=== PATIENT | female | born 1945 | race Caucasian/White ===

== ENCOUNTER 2016-05-01 08:59 | Outpatient (CLI) | payer MEDICARE | END 2016-05-01 09:00 | disposition home or self-care (01) | DX: Z13.820 Encounter for screening for osteoporosis (principal); M85.89 Other specified disorders of bone density and structure, multiple sites; M41.9 Scoliosis, unspecified ==

== ENCOUNTER 2016-05-01 09:00 | Outpatient (CLI) | payer MEDICARE | END 2016-05-01 09:01 | disposition home or self-care (01) | DX: S26.01 Contusion of heart with hemopericardium (principal); I51.7 Cardiomegaly; Z13.820 Encounter for screening for osteoporosis; M85.89 Other specified disorders of bone density and structure, multiple sites; M41.9 Scoliosis, unspecified ==

== ENCOUNTER 2016-08-15 12:54 | Outpatient (CLI) | payer MEDICARE | END 2016-08-15 12:55 | disposition home or self-care (01) | DX: N60.02 Solitary cyst of left breast (principal) ==

== ENCOUNTER 2017-08-27 09:34 | Outpatient (CLI) | payer MEDICARE ==
--- NOTE | 2017-08-28 13:54 | Mammography Report ---
DIGITAL SCREENING MAMMOGRAM: 08/27/2017 CLINICAL INDICATION: A 72-year-old for screening. COMPARISON: 06/2016, 12/2013, 11/2012, 10/2010, 09/2009. TECHNIQUE: Routine CC and MLO projections were obtained of the breasts. FINDINGS: The breasts demonstrate scattered fibroglandular densities bilaterally. Coarse and punctate, typically benign calcifications are present. No suspicious masses, clustered microcalcifications, or regions of architectural distortion are identified. IMPRESSION: BENIGN FINDINGS. RECOMMENDATION: Routine annual screening unless otherwise clinically indicated. BI-RADS CATEGORY 2 - BENIGN FINDINGS. STANDARD QUALIFYING STATEMENTS: 1. This examination was reviewed with the aid of Computer-Aided Detection (CAD). 2. A negative or benign imaging report should not delay biopsy if clinically suspicious findings are present. Consider surgical consultation if warranted. More than 5% of cancers are not identified by imaging. 3. Dense breasts may obscure an underlying neoplasm. TD: 08/28/2017 13:53
== END 2017-08-27 09:35 | disposition home or self-care (01) ==
LOC: DI.S 09:34
PROVIDERS: ATTEND Nurse Practitioner Family
DX: Z12.31 Encounter for screening mammogram for malignant neoplasm of breast (principal)
CPT/HCPCS: 77067

== ENCOUNTER 2017-09-23 10:03 | Outpatient (CLI) | payer MEDICARE ==
[2017-09-23 18:57] LABS: ALBUMIN 3.8 g/dL (3.2-5.5); ALBUMIN/GLOBULIN RATIO 1.4 (1.0-2.2); ALKALINE PHOSPHATASE 69 IU/L (42-121); ALT ALANINE AMINOTRANSFERASE 16 IU/L (10-60); AST ASPARTATE AMINOTRANSFERASE 21 IU/L (10-42); BILIRUBIN,TOTAL 0.8 mg/dL (0.2-1.0); BUN - BLOOD UREA NITROGEN 24 mg/dL (6-20); CALCIUM 9.1 mg/dL (8.5-10.3); CARBON DIOXIDE - CO2 29 mmol/L (21-32); CHLORIDE 100 mmol/L (101-111); CHOLESTEROL 198 mg/dL; CREATININE 0.9 mg/dL (0.4-1.0); GFR - MDRD 62 (>89); GLUCOSE 101 mg/dL (70-100); HDL CHOLESTEROL 66 mg/dL; LDL CHOLESTEROL,CALCULATED 113 mg/dL; LDL/HDL RATIO 1.7 (<4.4); SODIUM 135 mmol/L (135-145); TOTAL PROTEIN 6.5 g/dL (6.7-8.2); VLDL CHOLESTEROL 19 mg/dL
[2017-09-23 19:51] LABS: HB2 TOTAL 16.1 g/dL; HEMOGLOBIN A1C 0.67 g/dL
== END 2017-09-23 10:04 | disposition home or self-care (01) ==
LOC: LAB.S 10:03
PROVIDERS: ATTEND Nurse Practitioner Family
DX: R73.01 Impaired fasting glucose (principal); E78.5 Hyperlipidemia, unspecified; I25.10 Atherosclerotic heart disease of native coronary artery without angina pectoris
CPT/HCPCS: 36415; 80053; 80061; 83036; 83721; 84443

== ENCOUNTER 2017-11-29 11:48 | Emergency (ER) | payer MEDICARE ==
[2017-11-29] MEDS ORDERED: BUFFERED LIDOCAINE 10 ML SYRINGE SUBQ STA (13:36)
[2017-11-29] MEDS ORDERED: TETANUS/DIPHTHERIA/PERTUSSIS 0.5 ML SYRINGE IM ONE (13:36)
[2017-11-29] MEDS ORDERED: BUFFERED LIDOCAINE 10 ML SYRINGE ONE (13:37)
--- NOTE | 2017-11-29 13:39 | ED Physician Documentation ---
PD HPI HEAD INJURY - Stated complaint Stated Complaint: GLF/LAC BACK OF HEAD - Chief complaint Chief Complaint: Laceration - History obtained from History obtained from: Patient - History of Present Illness Mechanism of head injury: Fell (She had a trip and fall hitting the back of her head on the ground. This is around 1030. She had a headache but it is now gone. There is no loss of consciousness. She has a wound on her occiput, tetanus is not up-to-date. No other injuries.) Review of Systems Constitutional: denies: Fever, Chills Eyes: denies: Loss of vision, Decreased vision, Photophobia Ears: denies: Loss of hearing, Ear pain GI: denies: Abdominal Pain, Nausea, Vomiting PD PAST MEDICAL HISTORY - Past Medical History Cardiovascular: Hypertension Respiratory: Other HEENT: None - Past Surgical History Cardiovascular: Lobectomy - Present Medications Home Medications: Ambulatory Orders Medication Instructions Recorded Confirmed Ascorbic Acid [Vitamin C] 1 tab PO DAILY 07/29/14 03/27/16 Aspirin [Aspir 81] 1 tab PO DAILY 07/29/14 03/27/16 Cholecalciferol (Vitamin D3) 1 tab ORAL DAILY 07/29/14 03/27/16 [Vitamin D-3] Lisinopril 1 tab PO DAILY 07/29/14 03/27/16 Multivitamin [Multi-Vitamin Daily] 1 tab PO DAILY 07/29/14 03/27/16 - Allergies Allergies/Adverse Reactions: Allergies Allergy/AdvReac Type Severity Reaction Status Date / Time No Known Drug Allergies Allergy Verified 11/29/17 12:06 - Social History Does the pt smoke?: No Smoking Status: Never smoker Does the pt drink ETOH?: Yes Does the pt have substance abuse?: No - Immunizations Immunizations are current?: Yes PD ED PE NORMAL - Vitals Vital signs reviewed: Yes - General General: Alert and oriented X 3, No acute distress - HEENT HEENT: Other (The left pupil is larger than the right and she has a disconjugate gaze which she says 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 She has a 2 cm curved right scalp laceration on the occiput.) - Neck Neck: Supple, no meningeal sign, No bony TTP - Extremities Extremities: No edema, No calf tenderness / cord - Neuro Neuro: Alert and oriented X 3, Normal speech Eye Opening: Spontaneous Motor: Obeys Commands Verbal: Oriented GCS Score: 15 - Psych Psych: Normal mood, Normal affect Results - Vitals Vitals: Vital Signs - 24 hr 11/29/17 11/29/17 12:03 14:30 Temperature 36.4 C L 36.6 C Heart Rate 62 61 Respiratory 18 13 Rate Blood Pressure 176/94 H 148/87 H O2 Saturation 95 97 Oxygen O2 Source Room air - Rads (name of study) CT Head Radiology: EMP read contemporaneously (Changes attributable to her prior subarachnoid hemorrhage/aneurysm.) Procedures - Laceration (location) scalp Length in cm: 2 Wound type: Curved, Into subcut fat Neurovascular status: Sensory intact, Motor intact Anesthesia: Lidocaine 1%, With bicarb Wound Preparation: Irrigated copiously NS Skin layer closure: [place] (5) Other: Tetanus booster given Complexity: Simple PD MEDICAL DECISION MAKING - Sepsis Event Vital Signs: Vital Signs - 24 hr 11/29/17 11/29/17 12:03 14:30 Temperature 36.4 C L 36.6 C Heart Rate 62 61 Respiratory 18 13 Rate Blood Pressure 176/94 H 148/87 H O2 Saturation 95 97 Oxygen O2 Source Room air Departure - Departure Disposition: 01 Home, Self Care Clinical Impression: Head injury Qualifiers: Encounter type: initial encounter Qualified Code(s): S09.90XA - Unspecified injury of head, initial encounter Occipital scalp laceration Qualifiers: Encounter type: initial encounter Qualified Code(s): S01.01XA - Laceration without foreign body of scalp, initial encounter Condition: Good Record reviewed to determine appropriate education?: Yes Instructions: ED Head Injury Closed Comments: Come back for any signs of infection which would include: Redness, swelling, drainage, increased pain, or fevers. Follow-up with your physician in 10 days for staple removal.
[2017-11-29 14:31] VITALS: BP 148/87
--- NOTE | 2017-11-29 14:55 | CT Report ---
Procedure Date: 11/29/2017 Accession Number: [id number] / [id number] Procedure: CT - Head W/O CPT Code: FULL RESULT: EXAM: CT HEAD EXAM DATE: 11/29/2017 02:22 PM. CLINICAL HISTORY: Head trauma with occipital laceration. COMPARISON: None. TECHNIQUE: Multiaxial CT images were obtained from the foramen magnum to the vertex. Reformats: Sagittal and coronal. IV contrast: None. In accordance with CT protocol optimization, one or more of the following dose reduction techniques were utilized for this exam: automated exposure control, adjustment of mA and/or KV based on patient size, or use of iterative reconstructive technique. FINDINGS: Parenchyma: No intraparenchymal hemorrhage. No evidence of mass, midline shift, or CT findings of acute infarction. Jack-white differentiation is distinct. Diffuse chronic microangiopathic white matter changes are evident. Stable areas of encephalomalacia in the right parieto-occipital and frontal lobes. Left temporal lobe encephalomalacia is also present. 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 Extraaxial Spaces: Normal for age. No subdural or epidural collections identified. Ventricles: The ventricles and cortical sulci are enlarged, consistent with age-related tissue loss. Right parietal approach ventriculostomy catheter terminates in the right frontal horn region. Sinuses and orbits: Imaged paranasal sinuses, orbits, and mastoids show no significant abnormality. Bones: Left sided craniotomy, unchanged. No fracture. Stable appearance of the left. Other: Mild soft tissue swelling and ciaran are noted in the right parietal region. IMPRESSION: 1. Generalized age-related cortical atrophic changes without evidence of acute intracranial abnormality. 2. Multiple areas of encephalomalacia including the left temporal, right parieto-occipital and right frontal lobe. RADIA
== END 2017-11-29 15:00 | disposition home or self-care (01) ==
LOC: ED 11:48
DX: S01.01XA Laceration without foreign body of scalp, initial encounter (principal); S09.90XA Unspecified injury of head, initial encounter; Z23 Encounter for immunization; I10 Essential (primary) hypertension; Z79.82 Long term (current) use of aspirin; W01.198A Fall on same level from slipping, tripping and stumbling with subsequent striking against other object, initial encounter
CPT/HCPCS: 12001; 70450; 90471; 99283

== ENCOUNTER 2018-11-04 08:42 | Outpatient (CLI) | payer MEDICARE ==
--- NOTE | 2018-11-05 08:33 | Mammography Report ---
Reason: ANNUAL SCREENING Procedure Date: 11/04/2018 Accession Number: [id number] / [id number] Procedure: [facility] - Screening Mammo Dig Bilat CPT Code: FULL RESULT: EXAM: Screening Mammo Dig Bilat DATE: 11/04/2018 9:23 AM CLINICAL HISTORY: Screening encounter. No reported risk factors. TECHNIQUE: (B) - Bilateral CC, laterally exaggerated CC, MLO views were obtained. COMPARISON: 08/27/2017 through 12/30/2013. PARENCHYMAL PATTERN: (A) - The breast(s) demonstrate(s) scattered fibroglandular densities. FINDINGS: A radiodense tubular object is seen projecting over the posterior lower right breast/chest wall on the right MLO view, potentially a central venous catheter, also seen in 2017 and unchanged, typically benign. There are no suspicious masses, calcifications, or areas of distortion. IMPRESSION: Benign findings. BI-RADS category 2. RECOMMENDATION: (ANNUAL) - Recommend routine annual screening mammography. BI-RADS CATEGORY: (2) - Benign Findings. STANDARD QUALIFYING STATEMENTS: 1. This examination was not reviewed with the aid of Computer-Aided Detection (CAD). 2. A negative or benign imaging report should not preclude biopsy if clinically suspicious findings are present. 3. Dense breasts may obscure an underlying neoplasm. 4. This examination was reviewed without the aid of 3D breast imaging (tomosynthesis).
== END 2018-11-04 08:43 | disposition home or self-care (01) ==
LOC: DI 08:42
PROVIDERS: ATTEND Registered Nurse
DX: N60.12 Diffuse cystic mastopathy of left breast (principal); R92.8 Other abnormal and inconclusive findings on diagnostic imaging of breast
CPT/HCPCS: 77067

== ENCOUNTER 2019-10-15 17:22 | Outpatient (CLI) | payer MEDICARE | END 2019-10-15 17:23 | disposition critical access hospital (66) | LOC: EMS 17:22 | PROVIDERS: ATTEND Surgery | DX: R53.1 Weakness (principal); R47.81 Slurred speech | CPT/HCPCS: A0425; A0429 ==

== ENCOUNTER 2019-10-15 17:55 | Observation (INO) | payer MEDICARE ==
[2019-10-15] MEDS ORDERED: SODIUM CHLORIDE 0.9% 1,000 ML IV STA (18:10)
[2019-10-15 18:36] LABS: BASOPHILS # (AUTO) 0.1 10^3/uL (0.0-0.1); BASOPHILS % (AUTO) 1.1 %; EOSINOPHILS # (AUTO) 0.1 10^3/uL (0.0-0.7); EOSINOPHILS % (AUTO) 2.1 %; HGB - HEMOGLOBIN 15.7 g/dL (12.0-16.0); LYMPHOCYTES # (AUTO) 1.6 10^3/uL (1.5-3.5); LYMPHOCYTES % (AUTO) 27.9 %; MEAN CORPUSCULAR HEMOGLOBIN 30.8 pg (27.0-31.0); MEAN CORPUSCULAR HGB CONC 32.9 g/dL (32.0-36.0); MEAN CORPUSCULAR VOLUME 93.5 fL (81.0-99.0); MEAN PLATELET VOLUME 10.4 fL (7.9-10.8); MONOCYTES # (AUTO) 0.6 10^3/uL (0.0-1.0); MONOCYTES % (AUTO) 10.4 %; NEUTROPHILS # (AUTO) 3.3 10^3/uL (1.5-6.6); NEUTROPHILS % (AUTO) 58.3 %; PLT - PLATELET COUNT 227 10^3/uL (130-450); RED CELL DISTRIBUTION WIDTH 11.9 % (12.0-15.0); WHITE BLOOD COUNT 5.6 x10^3/uL (4.8-10.8)
[2019-10-15 18:46] LABS: PT - PROTHROMBIN TIME 11.2 secs (9.9-12.6)
[2019-10-15 18:49] LABS: ALBUMIN 3.8 g/dL (3.2-5.5); ALBUMIN/GLOBULIN RATIO 1.4 (1.0-2.2); BILIRUBIN,TOTAL 0.7 mg/dL (0.2-1.0); CALCIUM 9.1 mg/dL (8.5-10.3); CREATININE 0.9 mg/dL (0.4-1.0); TOTAL PROTEIN 6.5 g/dL (6.7-8.2)
[2019-10-15] MEDS ORDERED: ASPIRIN CHEW 81 MG TABLET PO STA ×2 (18:54→22:09)
--- NOTE | 2019-10-15 19:09 | CT Report ---
PROCEDURE: HEAD WO INDICATIONS: stroke TECHNIQUE: Noncontrast 4.5 mm thick angled axial sections acquired from the foramen magnum to the vertex. For r adiation dose reduction, the following was used: automated exposure control, adjustment of mA and/or kV according to patient size. COMPARISON: 11/29/[address] FINDINGS: Image quality: Excellent. CSF spaces: Basal cisterns are patent. No extra-axial fluid collections. Ventricles are stable in size and shape with a ventriculostomy catheter from right posterior parietal approach. Brain: No midline shift. No intracranial masses or hemorrhage. [place]-white matter interface is norm al. Skull and face: Calvarium and visualized facial bones are intact, without suspicious lesions. Sinuses: Visualized sinuses and mastoids are clear. IMPRESSION: Stable over time, ventriculostomy catheter in normal position from right-sided approach. No change from November 2017. Reviewed by: Darin Dyer MD on 10/15/2019 7:08 PM PDT Approved by: Darin Dyer MD on 10/15/2019 7:08 PM PDT Station ID: [id number]
[2019-10-15] MEDS ORDERED: IOVERSOL 320 100 ML VIAL IVP ONE ×2 (19:13→21:01)
[2019-10-15 19:22] LABS: BILIRUBIN,URINE NEGATIVE (NEGATIVE); GLUCOSE, URINE (UA) NEGATIVE (NEGATIVE); KETONES,URINE (UA) NEGATIVE (NEGATIVE); LEUKOCYTE ESTERASE, URINE SMALL (NEGATIVE); NITRITE,URINE POSITIVE (NEGATIVE); OCCULT BLOOD,URINE SMALL (NEGATIVE); PH,URINE 6.5 PH (5.0-7.5); PROTEIN,URINE NEGATIVE (NEGATIVE); UROBILINOGEN,URINE 0.2 (NORMAL) E.U./dL (NORMAL)
[2019-10-15 19:24] LABS: CLARITY,URINE HAZY (CLEAR)
[2019-10-15 19:35] LABS: BACTERIA,URINE Many /HPF (None Seen); SQUAMOUS EPITHELIAL CELL,UR MANY Squamous (<= Few)
--- NOTE | 2019-10-15 19:50 | ED Physician Documentation ---
History of Present Illness - Stated complaint Stated Complaint: POSS STROKE - Chief complaint Chief Complaint: Neuro - History obtained from History obtained from: Patient, EMS - Additonal information Additional information: Patient comes emergency department via EMS after experiencing strokelike symptoms starting 2 days ago. Patient states she woke up from a nap and noticed that her right arm and leg seemed weak. She states she also was having trouble getting the right words out and enunciating her words. Patient states she feels like the symptoms have gotten worse over the last 2 days. She has a history of a ruptured aneurysm some years back and has a ventricular shunt in place for this. This was on the right side and left her with some mild left-sided deficits. However, patient states that she has not noticed any worsening of the weakness on the left. Patient denies any illness recently. No fevers or chills. No cough. No shortness of breath that is worse than usual. Patient states she has a history of COPD. No chest pain. No nausea or vomiting. No dizziness. Patient states that she has been able to drink water. She does walk around at home without a walker, and believes she has been able to get around since the symptoms started. No other complaints at this time. Review of Systems Ten Systems: 10 systems reviewed and negative Constitutional: reports: Reviewed and negative Eyes: reports: Reviewed and negative Ears: reports: Reviewed and negative Nose: reports: Reviewed and negative Throat: reports: Reviewed and negative Cardiac: reports: Reviewed and negative Respiratory: reports: Reviewed and negative GI: reports: Reviewed and negative : reports: Reviewed and negative Skin: reports: Reviewed and negative Musculoskeletal: reports: Reviewed and negative Neurologic: reports: Focal weakness Psychiatric: reports: Reviewed and negative Endocrine: reports: Reviewed and negative Immunocompromised: reports: Reviewed and negative PD PAST MEDICAL HISTORY - Past Medical History Cardiovascular: Hypertension Respiratory: Other HEENT: None - Past Surgical History Cardiovascular: Lobectomy - Present Medications Home Medications: Ambulatory Orders Medication Instructions Recorded Confirmed Ascorbic Acid [Vitamin C] 1 tab PO DAILY 07/29/14 03/27/16 Aspirin [Aspir 81] 1 tab PO DAILY 07/29/14 03/27/16 Cholecalciferol (Vitamin D3) 1 tab ORAL DAILY 07/29/14 03/27/16 [Vitamin D-3] Lisinopril 1 tab PO DAILY 07/29/14 03/27/16 Multivitamin [Multi-Vitamin Daily] 1 tab PO DAILY 07/29/14 03/27/16 - Allergies Allergies/Adverse Reactions: Allergies Allergy/AdvReac Type Severity Reaction Status Date / Time No Known Drug Allergies Allergy Verified 10/15/19 18:03 - Social History Does the pt smoke?: No Smoking Status: Never smoker Does the pt drink ETOH?: Yes Does the pt have substance abuse?: No - Immunizations Immunizations are current?: Yes PD ED PE NORMAL - Vitals Vital signs reviewed: Yes - General General: Alert and oriented X 3, No acute distress, Well developed/nourished - HEENT HEENT: Atraumatic, PERRL, EOMI, Moist mucous membranes - Neck Neck: Supple, no meningeal sign - Cardiac Cardiac: RRR, No murmur, Strong equal pulses - Respiratory Respiratory: No respiratory distress, Clear bilaterally - Abdomen Abdomen: Soft, Non tender, Non distended - Derm Derm: Normal color, Warm and dry, No rash - Extremities Extremities: No deformity - Neuro Neuro: Alert and oriented X 3, luggage liner 2-12 intact, No sensory deficit, Other (Patient has slowed speech, but she speaks proper words and words are clear. Mildly decreased strength of right upper and lower extremity compared to the left.) - Psych Psych: Normal mood, Normal affect PD ED PE EXPANDED - Neuro Neuro: Other (NIH stroke scale score 1.) Results - Vitals Vitals: Vital Signs - 24 hr 10/15/19 10/15/19 10/15/19 18:03 18:39 19:09 Temperature 37 C Heart Rate 64 76 70 Respiratory 17 20 22 Rate Blood Pressure 163/74 H 172/75 H 190/104 H O2 Saturation 92 94 92 Oxygen O2 Source Room air - EKG (time done) 1833 Rate: Rate (enter#) (68) Rhythm: NSR, LAE [place]: Normal Intervals: Normal MA QRS: LVH Ischemia: Normal ST segments. No: T wave inversion Compare to prior EKG: Old EKG unavailable Computer interpretation: Agree with computer - Labs Labs: Laboratory Tests 10/15/19 10/15/19 10/15/19 18:29 18:29 18:29 WBC 5.6 RBC 5.10 Hgb 15.7 Hct 47.7 H MCV 93.5 MCH 30.8 MCHC 32.9 RDW 11.9 L Plt Count 227 MPV 10.4 Neut # (Auto) 3.3 Lymph # (Auto) 1.6 [place] # (Auto) 0.6 Eos # (Auto) 0.1 Baso # (Auto) 0.1 Absolute Nucleated RBC 0.00 Nucleated RBC % 0.0 PT 11.2 INR 1.0 Sodium 139 Potassium 4.2 Chloride 101 Carbon Dioxide 26 Anion Gap 12.0 BUN 30 H Creatinine 0.9 Estimated GFR (MDRD) 62 L Glucose 110 H Calcium 9.1 Total Bilirubin 0.7 AST 20 ALT 18 Alkaline Phosphatase 62 Total Protein 6.5 L Albumin 3.8 Globulin 2.7 Albumin/Globulin Ratio 1.4 Lipase 46 Urine Color Urine Clarity Urine pH Ur Specific [place] Urine Protein Urine Glucose (UA) Urine Ketones Urine Occult Blood Urine Nitrite Urine Bilirubin Urine Urobilinogen Ur Leukocyte Esterase Urine RBC Urine WBC Ur Squamous Epith Cells Urine Bacteria Ur Microscopic Review Urine Culture Comments 10/15/19 19:15 WBC RBC Hgb Hct MCV MCH MCHC RDW Plt Count MPV Neut # (Auto) Lymph # (Auto) [place] # (Auto) Eos # (Auto) Baso # (Auto) Absolute Nucleated RBC Nucleated RBC % PT INR Sodium Potassium Chloride Carbon Dioxide Anion Gap BUN Creatinine Estimated GFR (MDRD) Glucose Calcium Total Bilirubin AST ALT Alkaline Phosphatase Total Protein Albumin Globulin Albumin/Globulin Ratio Lipase Urine Color YELLOW Urine Clarity HAZY Urine pH 6.5 Ur Specific [place] 1.020 Urine Protein NEGATIVE Urine Glucose (UA) NEGATIVE Urine Ketones NEGATIVE Urine Occult Blood SMALL H Urine Nitrite POSITIVE H Urine Bilirubin NEGATIVE Urine Urobilinogen 0.2 (NORMAL) Ur Leukocyte Esterase SMALL H Urine RBC 6-10 H Urine WBC 11-25 H Ur Squamous Epith Cells MANY Squamous H Urine Bacteria Many H Ur Microscopic Review INDICATED Urine Culture Comments NOT INDICATED - Rads (name of study) CT head Radiology: Final report received, EMP read indepedently, See rad report (Final radiologist interpretation: Stable over time, ventriculostomy catheter in normal position from right-sided approach. No change from November 2017.) PD MEDICAL DECISION MAKING - ED course Complexity details: reviewed results, re-evaluated patient, considered differential, d/w patient ED course: Actually did quite well in the emergency department, and her initial CT scan of the head without contrast showed no acute findings. Her labs were unremarkable. Urinalysis is pending at this time as was CTA of the head and neck. Patient was signed out to Dr. Jean Baptiste pending this and reevaluation and final dispositi on.
[2019-10-15] MEDS ORDERED: METOPROLOL 5 MG/5 ML VIAL IVP STA (20:32)
--- NOTE | 2019-10-15 20:57 | CT Report ---
PROCEDURE: ANGIO HEAD W/WO INDICATIONS: L sided facial droop CONTRAST: IV CONTRAST: Optiray 320 ml: 100 PO CONTRAST: *NO PO CONTRAST TECHNIQUE: Precontrast 4.5 mm thick angled axial sections acquired from the foramen magnum to the vertex. Afte r the administration of intravenous contrast, 1 mm thick sections acquired through the [place] of [place] is. Postcontrast 4.5 mm thick sections then re-acquired from the foramen magnum to the vertex. 3-di mensional cfifzug-tcuurjmjd-pugirrxgas (MIP) and/or volume rendering reformats were acquired of the c entral intracranial vasculature. For radiation dose reduction, the following was used: automated ex posure control, adjustment of mA and/or kV according to patient size. COMPARISON: Prior head CT 11/30/2019 and earlier same day. FINDINGS: Image quality: Excellent. Anterior circulation: Intracranial internal carotid arteries are normal in size and flow. The flow within the paired anterior cerebral arteries is normal and symmetric. The flow within the middle cer ebral arteries is normal and symmetric but quality of visualization is quite limited by metal artifac t from what appears to be 2 adjacent left-sided [place] region aneurysm clips. The anterior communicating artery is seen. No aneurysms are seen. Posterior circulation: Visualized portions of the vertebral arteries demonstrate normal caliber, and join to form a normal appearing basilar artery. Flow within the posterior cerebral arteries is poor ly seen due to metal artifact from adjacent aneurysm clip centered just to the left of midline and sy mmetric. No remaining aneurysms are seen. CSF spaces: Ventricles are normal in size and shape considering presence of a ventriculostomy cathet er on the right from right posterior approach. Basal cisterns are patent. No extra-axial fluid jacqueline ections. Brain: No midline shift. No intracranial bleeds or masses. Jack-white matter interface appears int act. Skull and face: Calvarium and facial bones appear intact, without acute suspicious lesions. Prior l eft frontotemporal craniotomy. Sinuses: Visualized sinuses and mastoids are clear. IMPRESSION: Prior aneurysm clipping at the posterior left margin of the [place] in this patient, produci ng metal artifact that obscures clear visualization of portions of the skull base arterial vasculatur e. Within this constraint the intracranial arterial vessel seen show no acute disease. Ventriculostomy catheter in normal position from right posterior approach, with tip extending to the anterior right lateral ventricle. No hydrocephalus is present. Prior craniotomy on the left. Reviewed by: Darin Dyer MD on 10/15/2019 8:55 PM PDT Approved by: Darin Dyer MD on 10/15/2019 8:55 PM PDT Station ID: [id number]
--- NOTE | 2019-10-15 20:59 | CT Report ---
PROCEDURE: ANGIO NECK W INDICATIONS: L sided facial droop, L neck pain CONTRAST: IV CONTRAST: Optiray 320 ml: 100 PO CONTRAST: *NO PO CONTRAST TECHNIQUE: After the administration of intravenous contrast, 1.5 mm axial sections acquired from the aortic arch to the [place]. Coronal 3-D maximum intensity projection (MIP) and/or volume rendering ref ormats were then performed. For radiation dose reduction, the following was used: automated exposur e control, adjustment of mA and/or kV according to patient size. COMPARISON: None. FINDINGS: Image quality: Excellent. Carotid system: The great vessels demonstrate a conventional anatomy as they arise from the aortic a rc. The origins of the common carotid arteries appear patent. The common carotid arteries demonstr ate normal calibers and courses. The bifurcation regions appear normal bilaterally. The internal ca rotid arteries demonstrate normal caliber and course. Posterior circulation: The origins of the vertebral arteries appear patent. The more superior porti ons of the vertebral arteries demonstrate normal course and caliber. They join to form a normal appe aring basilar artery. Soft tissues: Visualized neck soft tissues demonstrate no suspicious abnormalities. The thyroid gla nd is normal in size. Bones: No suspicious bony lesions. Visualized cervical spine appears normally aligned. IMPRESSION: No aortic arch or brachiocephalic arterial stenosis or occlusion is found. No sign of significant talia nosis at the proximal internal carotid arteries bilaterally. The estimate of stenosis included in the report of the imaging study was calculated using the NASCET method Reviewed by: Darin Dyer MD on 10/15/2019 8:58 PM PDT Approved by: Darin Dyer MD on 10/15/2019 8:58 PM PDT Station ID: [id number]
[2019-10-15] MEDS ORDERED: SODIUM CHLORIDE FLUSH 0.9% 10 ML SYRINGE IVP PRN (22:00)
[2019-10-15] MEDS ORDERED: ACETAMINOPHEN 325 MG TABLET PO PRN (22:00)
[2019-10-15] MEDS ORDERED: ONDANSETRON 4 MG/2 ML VIAL IVP PRN (22:00)
[2019-10-15] MEDS ORDERED: ATORVASTATIN 40 MG TABLET PO STA (22:09)
--- NOTE | 2019-10-15 22:11 | ED Physician Documentation ---
ED Addendum - Addendum Addendum: 10/15/19 22:06 Received sign-out from Dr. Chávez pending CTA results. CTA head/neck do not reveal significant or acute pathology. Patient says she still has some right- sided weakness (RUE > RLE). I also note that her blood pressures are quite high (200-210s/100s-110s); given 5mg IV lopressor with transient improvement. She can be redosed and/or given PO meds but concern is whether her blood pressure will continue to be adequately controlled/monitored if sent home tonight. Also, she has COPD but pulse ox has been as low as 84% before oxygen was placed; with 3 L NC, it corrects to 92-93% and she does not have respiratory symptoms. However, ongoing hypoxia and uncontrolled hypertension would have obvious potential to worsen TIA/CVA symptoms. Patient would benefit from observation status, Dr. Garcia accepts.
--- NOTE | 2019-10-15 22:52 | HISTORY & PHYSICAL EXAMINATION ---
Chief Complaint - Chief Complaint Chief Complaint: Right arm weakness History of Present Illness - Admitted From Admitted From:: Home - History Obtained From Records Reviewed: Yes History obtained from: Patient, ER Physician, EMR Exam Limitations: Patient is somewhat of a poor historian. - History of Present Illness HPI Comment/Other: This is a 74-year-old female with a past medical history significant for hypertension, COPD, history of brain aneurysm status post clipping and ventriculostomy placement who presents today complaining of right upper extremity weakness. She states her symptoms first began about 2 days ago after she had woken up from a nap. She did not think much of it at that time and felt that it would resolve on its own. She thinks her weakness resolved yesterday but that it returned today although she is not sure exactly what time this happened. She reports no numbness in that upper extremity. She denies any weakness in her lower extremities or left upper extremity. She believes that her right upper extremity weakness has resolved at this time. Reports no headache, blurry vision, dizziness, lightheadedness. She does not believe she has any slurred speech or difficulty speaking. She does complain of fatigue but states this is not new for her. She reports taking a baby aspirin a day. Reports no prior history of TIA or stroke. She does complain of abdominal pain and reports her last bowel movement was 3 days ago. Denies any dysuria, urgency, hematuria. She also denies any chest pain or dyspnea. In the emergency department, she underwent a CT of the head which showed no c oncerns for acute intracranial hemorrhage. She had a stable ventriculostomy catheter. She underwent a CTA of the head and neck which showed no concern for stenosis. She does have 2 aneurysm clips in the left side of the grindstone of Magu[place]. Her labs were unremarkable. Her blood pressure was elevated at times her systolic as high as 210. He was given Lopressor 5 mg IV with improvement in her blood pressure down to the 170s. She also desaturated at 1 point to the mid 80s and was placed on 2 L of oxygen. Given these findings above, medicine was consulted for admission. I did discuss goals of care the patient and she would like to be a full code. History - Past Medical History Cardiovascular: reports: Hypertension. denies: Congestive heart failure, Coronary artery disease, ID Respiratory: reports: COPD Neuro: reports: Other (Aneurysm.). denies: CVA, TIA HEENT: reports: Glaucoma MRSA Hx?: No - Past Surgical History Cardiovascular: reports: Lobectomy Neuro: reports: Craniotomy, Other (Ventriculogostomy. Aneurysm clipping of the grindstone of maguire.) - Family & Social History Family History Comment/Other: She reports her father from a myocardial infarction. Reports no other family history to her knowledge. Living arrangement: At home Living Situation: With spouse/s.o. Social History Notes: She lives at home with her . She normally embolus without any assistance. She smoked a pack a day for 30 years but quit in 1994. She drinks one beer on a daily basis. Meds/Allgy - Home Medications Home Medications: Ambulatory Orders Medication Instructions Recorded Confirmed Ascorbic Acid [Vitamin C] 1 tab PO DAILY 07/29/14 03/27/16 Aspirin [Aspir 81] 1 tab PO DAILY 07/29/14 03/27/16 Cholecalciferol (Vitamin D3) 1 tab ORAL DAILY 07/29/14 03/27/16 [Vitamin D-3] Lisinopril 1 tab PO DAILY 07/29/14 03/27/16 Multivitamin [Multi-Vitamin Daily] 1 tab PO DAILY 07/29/14 03/27/16 - Allergies Allergies/Adverse Reactions: Allergies Allergy/AdvReac Type Severity Reaction Status Date / Time No Known Drug Allergies Allergy Verified 10/15/19 18:03 Review of Systems - Constitutional Constitutional: reports: Fatigue, Weakness. denies: Fever, Chills - Eyes Eyes: denies: Blurred vision, Vision loss - Ears, Nose & Throat Ears, Nose & Throat: denies: Nasal discharge, Nasal congestion, Sore throat - Cardiovascular Cariovascular: denies: Chest pain, Edema, Lightheadedness, Exertional dyspnea, Decr. exercise tolerance - Respiratory Respiratory: denies: Cough, SOB at rest, SOB with exertion - Gastrointestinal Gastrointestinal: reports: Abdominal pain, Constipation. denies: Diarrhea, Nausea, Vomiting - Genitourinary Genitourinary: denies: Dysuria, Frequency, Urgency - Musculoskeletal Musculoskeletal: reports: Muscle weakness. denies: Muscle pain, Muscle aches - Integumentary Integumentary: denies: Rash - Neurological Neurological: reports: Focal weakness. denies: Headache, Dizziness, Numbness, Abnormal gait - All Other Systems All Other Systems: reports: Reviewed and negative Prior Level of Functionality: She is independent with her ADL's and does not ambulate with the assistance of any device. Exam - Vital Signs Reviewed Vital Signs: Yes Vital Signs: Vital Signs x48h Temp Pulse Resp BP Pulse Ox 10/15/19 22:00 60 16 179/99 H 92 10/15/19 21:24 62 16 181/96 H 92 10/15/19 21:00 70 21 175/100 H 94 10/15/19 20:50 66 22 179/101 H 92 10/15/19 20:46 73 17 181/125 H 93 10/15/19 20:30 74 29 H 213/115 H 93 10/15/19 20:00 90 24 168/96 H 88 L 10/15/19 19:09 70 22 190/104 H 92 10/15/19 18:39 76 20 172/75 H 94 10/15/19 18:03 37 C 64 17 163/74 H 92 - Physical Exam General Appearance: positive: No acute distress, Alert Eyes Bilateral: positive: Normal inspection, Conjunctivae nml, Other (Left pupil is 3mm and minimally reactive to light. Right pupil is 2mm and reactive to light. She reports her left pupil is always larger than her right.) ENT: positive: ENT inspection nml, Other (Nasal cannula in place.) Respiratory: positive: No respiratory distress, Other (Tachypnic but not in distress. Diminished breath sounds bilaterally.). negative: Wheezes, Rales Cardiovascular: positive: Regular rate & rhythm, No murmur. negative: Irregularly irregular, Tachycardia, Bradycardia, Systolic murmur, Diastolic murmur Peripheral Pulses: positive: 2+ Abdomen: positive: Nml bowel sounds, Tenderness (Most prominent in left lower and right quadrants.). negative: Non-tender, No distention (Distended adbo men.), Rebound Skin: positive: No rash, Dry, Cyanosis (Her bilateral lower extremities appear cyanotic at the toes which she reports has been present for over one year.), Other (Lower extremities appear mottled.) Extremities: positive: Pedal edema (Trace edema in bilateral lower extremities.). negative: Calf tenderness, Ray's sign/cords Neurologic/Psychiatric: positive: Oriented x3, CN's nml (2-12) (Cranial nerves grossly intact.), Sensation nml, Other (She has about 4 out of 5 motor strength in her bilateral lower extremities. She also has about 4 out of 5 motor strength in her right upper and left extremities. Sensation is intact in all 4 extremities. [id number] test is slightly slowed in the right upper extremity.). negative: Disoriented to person, Disoriented to place, Disoriented to time, Slurred/abnml speech Conclusion/Plan - Problem List (1) Stroke-like symptoms Conclusion/Plan: She presents with right upper extremity weakness that began 2 days ago and has been intermittent. She currently reports feeling back to baseline. This may potentially be a TIA or stroke as she still does appear to have some right upper extremity weakness on exam. If this was a stroke from 2 days ago, I would expect an infarct [address] of the head today. Reviewing her old CT scans revealed multiple areas of encephalomalacia including the left temporal lobe. This may potentially be a cause of her weakness. She received aspirin 81 mg in the emergency department. At this time, we will give her another 234 mg of aspirin so she will have a total of 325 mg. We will give her Lipitor 40 mg this evening. Unfortunately, she cannot undergo MRI due to the aneurysmal clipping she had in the past. We will consider repeating a CT of the head tomorrow. Will allow for permissive hypertension. We will monitor her on te lemetry and check an echocardiogram. Check lipid panel and A1c. PT/OT. (2) Abdominal pain Conclusion/Plan: Although she did not come to the emergency department today for abdominal pain she did complain of some pain on review of systems. She is quite tender on exam and her abdomen appears distended. Although she has been constipated with last only being 3 days ago, her bowel sounds are normal. We will obtain a stat CT of the abdomen pelvis without contrast given she has just received IV contrast for the CTA of the head and neck. Her pain appears controlled at this time so we will hold off on opiates. We will plan on starting her on a diet for the morning unless her CT reveals any acute abnormalities. Qualifiers: Abdominal location: lower abdomen, unspecified Qualified Code(s): R10.30 - Lower abdominal pain, unspecified (3) Hypoxia Conclusion/Plan: The etiology of this is not clear at this time. She reportedly desaturated to 80s on room air while the emergency department. She is currently saturating 95% on 2 L of oxygen. We will wean her oxygen to maintain an oxygen saturation greater than 88% given her history of COPD. She does not appear to be in exacerbation at this time so we will hold off on steroids. Chest x-ray has not been obtained yet but given we are obtaining a CT of the abdomen pelvis for her abdominal pain, we will obtain a CT of the chest as well to evaluate her aorta given her mottled extremities and right upper extremity weakness although her pulses are equal in both extremities. Unfortunately we cannot use IV contrast as she has just received contrast for the CT angiogram of the head and neck so we will not be able to fully evaluate for dissection but the CT of the neck did reveal no aortic arch stenosis. (4) Livedo reticularis Conclusion/Plan: Her lower extremities appear mild although she reports that the bluish tone of her bilateral toes have been present for over 1 year. Pulses are diminished but palpable. We will obtain arterial Dopplers of her lower extremities for further evaluation. (5) COPD (chronic obstructive pulmonary disease) Conclusion/Plan: This does not appear to be an exacerbation. Prior imaging revealed moderate emphysema on CT of the chest. She will need appropriate inhaler therapy on dis charge as well as an exercise desaturation test as she may need oxygen at home given her emphysema and possible fibrosis. (6) Hypertension Conclusion/Plan: She presents with systolics as high as the 210s. She is on lisinopril at home. Given the concern for possible stroke, we will allow for permissive hypertension overnight. We will give her IV antihypertensives for systolic greater than 215. We will resume her home antihypertensives tomorrow. She will likely need a second medication in addition to her lisinopril. Qualifiers: Hypertension type: essential hypertension Qualified Code(s): I10 - Essential (primary) hypertension (7) History of cerebral aneurysm Conclusion/Plan: This was performed at [facility] a few years ago after she had a brain he morrhage. She is a stable ventriculostomy catheter in place as well. Imaging today does not reveal any acute abnormalities. - Lab Results Lab results reviewed: Yes Fish Bones: 10/16/19 04:30 10/16/19 04:30 - Diagnostic Imaging Results Diagnostic Imaging Results: positive: Final report reviewed - EKG Results EKG Interpreted Independently: Yes EKG Comparison: Unchanged from prior EKG EKG Findings: Sinus rhythm with LVH. No ST segment changes. Core Measures - Anticipated LOS I expect patient to be DC'd or transferred within 96 hours.: Yes - Issues Hospital Issues and Management Plan: 74-year-old female with past medical history significant for prior brain aneurysm status post clipping with ventriculostomy catheter who presents today complaining of right upper extremity weakness. Imaging has been unremarkable. She was also found to be hypoxic and hypertensive. We will place her in observation for further work-up. - DVT/VTE - Prophylaxis VTE/DVT Device ordered at admit?: Yes VTE/DVT Prophylaxis med ordered at admit?: Yes
[2019-10-15] MEDS: SODIUM CHLORIDE FLUSH 0.9% 10 ML SYRINGE IVP SCH (23:01)
[2019-10-16 05:35] LABS: CHOL/HDL RATIO 2.9 (<4.4); CHOLESTEROL 197 mg/dL; HDL CHOLESTEROL 67 mg/dL; LDL CHOLESTEROL,CALCULATED 120 mg/dL; LDL/HDL RATIO 1.8 (<4.4); VLDL CHOLESTEROL 10 mg/dL
[2019-10-16 05:36] LABS: BASOPHILS # (AUTO) 0.1 10^3/uL (0.0-0.1); BASOPHILS % (AUTO) 0.3 %; EOSINOPHILS % (AUTO) 0.1 %; HGB - HEMOGLOBIN 16.5 g/dL (12.0-16.0); LYMPHOCYTES # (AUTO) 0.8 10^3/uL (1.5-3.5); LYMPHOCYTES % (AUTO) 4.4 %; MEAN CORPUSCULAR HEMOGLOBIN 29.7 pg (27.0-31.0); MEAN CORPUSCULAR HGB CONC 32.5 g/dL (32.0-36.0); MEAN CORPUSCULAR VOLUME 91.4 fL (81.0-99.0); MEAN PLATELET VOLUME 11.3 fL (7.9-10.8); MONOCYTES % (AUTO) 5.7 %; NEUTROPHILS # (AUTO) 16.1 10^3/uL (1.5-6.6); NEUTROPHILS % (AUTO) 88.9 %; PLT - PLATELET COUNT 229 10^3/uL (130-450); RED BLOOD COUNT 5.56 10^6/uL (4.20-5.40); RED CELL DISTRIBUTION WIDTH 12.1 % (12.0-15.0); WHITE BLOOD COUNT 18.1 x10^3/uL (4.8-10.8)
[2019-10-16 05:37] LABS: CALCIUM 9.2 mg/dL (8.5-10.3); CREATININE 0.9 mg/dL (0.4-1.0); PHOSPHORUS 3.7 mg/dL (2.5-4.6)
[2019-10-16 06:01] LABS: HB2 TOTAL 17.5 g/dL; HEMOGLOBIN A1C 0.72 g/dL; HEMOGLOBIN A1C % 5.9 % (4.6-6.2)
[2019-10-16 07:37] LABS: BASOPHILS % (AUTO) 0.3 %; EOSINOPHILS % (AUTO) 0.2 %; HGB - HEMOGLOBIN 16.4 g/dL (12.0-16.0); MEAN CORPUSCULAR HEMOGLOBIN 30.8 pg (27.0-31.0); MEAN CORPUSCULAR HGB CONC 32.9 g/dL (32.0-36.0); MEAN CORPUSCULAR VOLUME 93.8 fL (81.0-99.0); MEAN PLATELET VOLUME 10.5 fL (7.9-10.8); MONOCYTES % (AUTO) 5.2 %; NEUTROPHILS % (AUTO) 88.6 %; PLT - PLATELET COUNT 231 10^3/uL (130-450); RED BLOOD COUNT 5.32 10^6/uL (4.20-5.40); RED CELL DISTRIBUTION WIDTH 12.2 % (12.0-15.0); WHITE BLOOD COUNT 20.3 x10^3/uL (4.8-10.8)
[2019-10-16 07:44] LABS: ABNORMAL LYMPHS % (MANUAL) 0 %
[2019-10-16 07:59] LABS: BAND NEUTROPHILS % (MANUAL) 14 %; LYMPHOCYTES % (MANUAL) 4 %; MONOCYTES # (MANUAL) 1.2 10^3/uL (0.0-1.0); PLATELET MORPHOLOGY NORMAL APPEARANCE (NORMAL); RBC MORPHOLOGY (MULTIPLE) NORMAL APPEARANCE (NORMAL)
[2019-10-16 08:00] LABS: DIFFERENTIAL COMMENT MANUAL DIFFERENTIAL; PLATELET ESTIMATE, MANUAL NORMAL (130-450,000) (NORMAL)
--- NOTE | 2019-10-16 08:19 | Ultrasound Report ---
PROCEDURE: Duplex Lwr Ext Arterial Bilat INDICATIONS: Diminished pulses, mottled extremities. TECHNIQUE: Color and pulse Doppler interrogation was performed of both lower extremity arterial systems, with im age documentation. COMPARISON: None FINDINGS: Right lower extremity: Common femoral artery: 96 cm/sec, with triphasic flow. Deep femoral artery: 139 cm/sec, with triphasic flow. Proximal superficial femoral artery: 140 cm/sec, with triphasic flow. Mid superficial femoral artery: 81 cm/sec, with monophasic flow. Distal superficial femoral artery: 345 cm/sec, with monophasic flow. Popliteal artery: 36 cm/sec, with biphasic flow. Posterior tibial artery: 16 cm/sec, with monophasic flow. Anterior tibial artery/dorsalis pedis: 13/13 cm/sec, with monophasic flow. Jack-scale imaging description: Significant vascular calcifications. Left lower extremity: Common femoral artery: 124 cm/sec, with triphasic flow. Deep femoral artery: 121 cm/sec, with biphasic flow. Proximal superficial femoral artery: 164 cm/sec, with triphasic flow. Mid superficial femoral artery: 127 cm/sec, with biphasic flow. Distal superficial femoral artery: 130 cm/sec, with biphasic flow. Popliteal artery: 58 cm/sec, with biphasic flow. Posterior tibial artery: 31 cm/sec, with biphasic flow. Anterior tibial artery/dorsalis pedis: 33/33 cm/sec, with biphasic flow. Jack-scale imaging description: Significant vascular calcifications. IMPRESSION: 1. Focal high-grade stenosis within the right distal superficial femoral artery with decreased flow d istally. 2. No hemodynamically significant stenosis within the left lower extremity. The above findings are concordant with preliminary report. Reviewed by: Dana Meng MD on 10/16/2019 8:17 AM PDT Approved by: Dana Meng MD on 10/16/2019 8:17 AM PDT Station ID: [id number]
[2019-10-16] MEDS ORDERED: polyethylene glycoL 3350 17 GM PACKET PO SCH (09:00)
[2019-10-16] MEDS ORDERED: ENOXAPARIN 40 MG/0.4 ML SYRINGE SUBQ SCH (09:00)
[2019-10-16] MEDS: SODIUM CHLORIDE FLUSH 0.9% 10 ML SYRINGE IVP SCH (09:15)
[2019-10-16] MEDS ORDERED: ASPIRIN EC 325 MG TABLET PO SCH (10:00)
--- NOTE | 2019-10-16 12:35 | CT Report ---
PROCEDURE: HEAD WO INDICATIONS: F/U for stroke development TECHNIQUE: Noncontrast 4.5 mm thick angled axial sections acquired from the foramen magnum to the vertex. For r adiation dose reduction, the following was used: automated exposure control, adjustment of mA and/or kV according to patient size. COMPARISON: CT head 10/15/2019, CTA head and neck 10/15/2019. FINDINGS: Image quality: Metallic streak artifact from aneurysm repair is present, limiting areas of evaluation in the midbrain. CSF spaces: Basal cisterns are patent. No extra-axial fluid collections. Ventricles are normal in size and shape. Ventricular shunt is present posterior right parietal approach with distal tip termin ating near the midline of the frontal horns. Brain: No midline shift. No intracranial masses or hemorrhage. Jack-white matter interface is norm al. Densities are present within the periventricular and subcortical white matter. Skull and face: Calvarium demonstrates left calvarial postsurgical changes. Sinuses: Visualized sinuses and mastoids are clear. IMPRESSION: 1. No acute intracranial process. However, subtle changes of acute/subacute ischemia are best evalua chance on MRI brain without contrast. MRI is recommended for further evaluation as clinically indicated, unless contraindications are present. 2. Mild atrophy and chronic microvascular ischemic changes. Reviewed by: Dana Meng MD on 10/16/2019 12:33 PM PDT Approved by: Dana Meng MD on 10/16/2019 12:33 PM PDT Station ID: [id number]
--- NOTE | 2019-10-16 15:10 | Discharge Plan ---
Discharge Plan Problem Reviewed?: Yes Disposition: Home Health Service Condition: Stable Prescriptions: Aspirin EC [Ecotrin] 325 mg PO DAILY #30 tablet Atorvastatin [Lipitor] 40 mg PO QPM #30 tablet Tiotropium [place] [Spiriva Respimat] 4 gm IH BID #1 mist.inhal Diet: Cardiac Activity Restrictions: Activity as Tolerated Shower Restrictions: No Driving Restrictions: Yes Assistance Devices: Walker Health Concerns: You were here in Observation status to evaluate stuttering symptoms of a stroke, these are likely TIAs (mini strokes). The cause of these appears to be atherosclerosis (plaque buildup) in your arteries. You will now need to take adult dose aspirin daily and treat high cholesterol levels, with a statin medication. The new medications were prescribed electronically to your [facility] pharmacy. Your risk of falls is high, you need to use a walker to help you ambulate and home health physical therapy and Occupational Therapy have been ordered to come to your house. A bedside commode is also strongly advised to be used. Evaluation of the legs showed that you do have one area of significant blockage in the right leg, this would need your primary care to refer you to a vascular surgeon for further follow-up. Evaluation of the abdominal pain showed that you have urinary retention of a lar ge amount in your bladder. Please speak to your primary care provider for management of urinary retention. Chest imaging showed that you have emphysema and you had low oxygen levels on admission. You do not need an order for home oxygen today, but you do need to start taking inhalers, this has also been prescribed for you to [facility]. There was also finding of a pulmonary nodule which needs follow-up in several months, this will be sent to your primary care provider as a reminder. You should see your primary care provider, Jessica Thakkar NP, in 1 - 2 weeks in follow-up. Plan of Treatment: As above. Care Goals: Improvement in symptoms and stabilization are the goals. Assessment: Patient understands. Additional Instructions or Follow Up instructions: If you have new or worsening symptoms, call your PCP, or your [employer] insurance, or come to the ER. No Smoking: If you smoke, Please STOP! Call for help. Follow-up with: Dianna Thakkar ARNP [Primary Care Provider] -
--- NOTE | 2019-10-16 15:11 | DISCHARGE SUMMARY ---
Discharge Summary Admit Date: 10/15/19 Discharge Date: 10/16/19 Discharging Provider: Dr Ratna Appiah Primary Care Provider: VEE Thakkar Code Status: Attempt Resuscitation Condition at Discharge: Stable Discharge Disposition: [facility] History of Present Illness: From the admission H&P of Dr Mac Garcia: This is a 74-year-old female with a past medical history significant for hypertension, COPD, history of brain aneurysm status post clipping and ventriculo-peritoneal shunt placement who presents today complaining of right upper extremity weakness. She states her symptoms first began about 2 days ago after she had woken up from a nap. She did not think much of it at that time and felt that it would resolve on its own. She thinks her weakness resolved yesterday but that it returned today although she is not sure exactly what time this happened. She reports no numbness in that upper extremity. She denies any weakness in her lower extremities or left upper extremity. She believes that her right upper extremity weakness has resolved at this time. Reports no headache, blurry vision, dizziness, lightheadedness. She does not believe she has any slurred speech or difficulty speaking. She does complain of fatigue but states this is not new for her. She reports taking a baby aspirin a day. Reports no prior history of TIA or stroke. She does complain of abdominal pain and reports her last bowel movement was 3 days ago. Denies any dysuria, urgency, hematuria. She also denies any chest pain or dyspnea. In the emergency department, she underwent a CT of the head which showed no concerns for acute intracranial hemorrhage. She had a stable ventriculostomy catheter. She underwent a CTA of the head and neck which showed no concern for stenosis. She does have 2 aneurysm clips in the left side of the [place]. Her labs were unremarkable. Her blood pressure was elevated at times her systolic as high as 210. He was given Lopressor 5 mg IV with improvement in her blood pressure down to the 170s. She also desaturated at one point to the mid 80s and was placed on 2 L of oxygen. Given these findings above, the Hospitalist team was consulted for admission. I did discuss goals of care the patient and she would like to be a full code. - HOSPITAL COURSE Hospital Course: 1) TIA(s) There were no further neurologic symptoms. He had a repeat (2nd) CT head, since he could not get an MRI due to brain clips, and this showed no findings of progression to a stroke. An Echo was done that showed normal LV function, no clot, no shunt. She was started on an adult dose aspirin daily which should be used lifelong, and also started on a new statin. A fasting lipid panel was done that showed an LDL of 120. She was evaluated by PT and OT, and felt to be at risk of falls, was prescribed a new front-wheeled walker and also a bedside commode was advised (since she needs to go down a flight of stairs from the bedroom to go to the bathroom). She also had a referral placed to Home Health, for PT, OT and bath aide. 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 The shunt appeared normal in the abdomen. 3) HTN Her BP improved. She was continued on her home BP meds. 4) COPD A CXR was done that showed significant upper lobe emphysema. She said she has never been told that diagnosis. She is an ex-smoker, who quit many years ago. She was hypoxic at admission; the supplemental O2 was weaned to room air. She had a walking oximetry test the following day and had good saturations and did not need home oxygen ordered. She was discharged on new Spiriva inhaler. 5) Urinary retention She complained of abdominal pain at admission and had a CT abdomen/pelvis, which showed constipation and a very distended urinary bladder, no other acute find ings. A straight cath was done and the bladder drained of 1400cc , which relieved the abdominal pain. After that she had normal urination of dark urine (see below). 6) PVD At admission, on exam, she had leg mottling, but adequate foot pulses. 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 This needs outpatient management with vascular surgery, if needed. Her aspirin and statin were planned for this as well. 7) Lung nodule The CXR also reported a new lung nodule, which needs future follow-up imaging, recommended by Radiology, to be done in months. 8) UTI (with hematuria) Her admission urinalysis showed many WBCs and bacteria, but also many squamous cells, therefore a repeat urinalysis from a clean-catch urine was ordered. It was done several hours before discharge and was dark, had a pH of 5 and positive Nitrates, large RBCs and Moderate bacteria. A culture was started. She was therefore sent home with a prescription for a course of oral Cipro. - ALLERGIES Allergies/Adverse Reactions: Allergies Allergy/AdvReac Type Severity Reaction Status Date / Time No Known Drug Allergies Allergy Verified 10/15/19 18:03 - MEDICATIONS Home Medications: Ambulatory Orders Medication Instructions Recorded Confirmed Lisinopril 1 tab PO DAILY 07/29/14 10/16/19 Aspirin EC [Ecotrin] 325 mg PO DAILY #30 tablet 10/16/19 Atorvastatin [Lipitor] 40 mg PO QPM #30 tablet 10/16/19 Ciprofloxacin HCl [Cipro] 500 mg PO BID #12 tablet 10/16/19 Latanoprost 0.005% Ophth Drops 1 drops EACHEYE QPM 10/16/19 10/16/19 [Xalatan Ophth Drops] Metoprolol Succinate 50 mg pe PO DAILY 10/16/19 10/16/19 Timolol 0.25% Ophth Drops 1 drops EACHEYE DAILY 10/16/19 10/16/19 [Timoptic 0.25% Ophth Drops] Tiotropium [place] [Spiriva 4 gm IH BID #1 mist.inhal 10/16/19 Respimat] - PHYSICAL EXAM AT DISCHARGE General Appearance: positive: No acute distress, Alert, Other (Thin and appears tired.) Eyes Bilateral: positive: Other (left upper lid lag, and unequal pupil sizes) ENT: positive: ENT inspection nml, No signs of dehydration Neck: positive: Nml inspection, No JVD Respiratory: positive: No respiratory distress, Other (Poor air movement, but no wheezes or rales) Cardiovascular: positive: Regular rate & rhythm, No murmur Abdomen: positive: Non-tender, No distention Skin: positive: Color nml Extremities: positive: Non-tender, No pedal edema Neurologic/Psychiatric: positive: Oriented x3, Other (Speech is slow but not slurred, left eye lid abnormal (as above).) - LABS Result Diagrams: 10/16/19 07:33 10/16/19 04:30 - DIAGNOSTIC IMAGING Diagnostic Imaging Results: Final report reviewed - FOLLOW UP Follow Up: See PCP in 1-2 weeks for hospital follow-up. - TIME SPENT Time Spent in Discharge (Minutes): 45
[2019-10-16 15:22] VITALS: BP 137/71
[2019-10-16 16:23] LABS: GLUCOSE, URINE (UA) NEGATIVE (NEGATIVE); KETONES,URINE (UA) TRACE mg/dL (NEGATIVE); LEUKOCYTE ESTERASE, URINE NEGATIVE (NEGATIVE); NITRITE,URINE POSITIVE (NEGATIVE); OCCULT BLOOD,URINE LARGE (NEGATIVE); PROTEIN,URINE 100 mg/dL (NEGATIVE); UROBILINOGEN,URINE 1 (NORMAL) E.U./dL (NORMAL)
[2019-10-16 16:30] LABS: BACTERIA,URINE Moderate /HPF (None Seen); BILIRUBIN,URINE NEGATIVE (NEGATIVE); CLARITY,URINE BLOODY (CLEAR); ICTOTEST,URINE NEGATIVE; RBC,URINE TNTC /HPF (0-5); SQUAMOUS EPITHELIAL CELL,UR NONE SEEN (<= Few)
--- NOTE | 2019-10-16 16:57 | CT Report ---
PROCEDURE: CHEST WO INDICATIONS: Hypoxia. Dyspnea. TECHNIQUE: Noncontrast 5 mm thick sections acquired from the pulmonary apices to the posterior costophrenic angl es. 7 mm thick coronal and sagittal MIP reformats were then acquired. For radiation dose reduction, the following was used: automated exposure control, adjustment of mA and/or kV according to patient size. Images were aligned for interpretation on 10/16/2019 at 4:52 PM. COMPARISON: CT chest 12 10/05. FINDINGS: Image quality: Excellent. Lungs and pleura: No acute air space opacities. No pleural effusions or pneumothorax. Central and peripheral airways are patent and normal in caliber. Chronic interstitial changes are present. 12 mm nodular opacity is present within the right lower lobe on series 4 image 103. This has increased fro m punctate size compared to prior exam. Emphysematous changes are present. There is a scattered fibro sis are noted. Mediastinum: Heart size is normal. No pericardial effusion. No mediastinal adenopathy by size crit eria. Thoracic aorta and central pulmonary arteries are normal in size. Esophagus is normal in [place]. Large hiatal hernia. Bones and chest wall: No suspicious bony lesions. No vertebral body compression fractures. No axil raisa or supraclavicular adenopathy by size criteria. The thyroid is normal in size. Abdomen: Visualized upper abdominal solid organs and bowel loops appear normal in the absence of con trast. IMPRESSION: 1. Chronic interstitial changes without consolidation. 2. Right lower lobe nodular opacity which appeared as punctate in 2016. It is considered indeterminat e. However, interval growth is noted. Short interval imaging follow-up in [address] is recom mended for further evaluation as slow-growing neoplasm cannot be definitively excluded. 3. Large hiatal hernia. The above findings are concordant with preliminary report. Reviewed by: Dana Meng MD on 10/16/2019 4:56 PM PDT Approved by: Dana Meng MD on 10/16/2019 4:56 PM PDT Station ID: [id number]
--- NOTE | 2019-10-16 17:02 | CT Report ---
PROCEDURE: Abdomen/Pelvis WO INDICATIONS: Abdominal distention and pain. Constipation. TECHNIQUE: Noncontrast 5 mm thick sections acquired from the diaphragms to the symphysis. 5 mm coronal and sagi ttal reformats were then performed. For radiation dose reduction, the following was used: automated exposure control, adjustment of mA and/or kV according to patient size. COMPARISON: 03/27/2016. FINDINGS: Image quality: Excellent. ABDOMEN: Lung bases: Heart size is enlarged. Large hiatal hernia is again noted with adjacent compressive ate lectasis in bilateral lung bases. Solid organs: Liver and spleen are normal in size. Gallbladder it is within normal limits Pancreas is normal in contours. No adrenal nodules. Kidneys are normal in size, without hydronephrosis or n ephrolithiasis. Peritoneum and bowel: Unenhanced bowel loops demonstrate normal wall thickness and caliber. No free fluid or air. Significant fecal retention in the colon is seen extending to the rectum. Nodes and vessels: No retroperitoneal or mesenteric adenopathy by size criteria. Aorta and inferior vena cava are normal in caliber. Extensive atherosclerotic calcifications throughout the abdominal aorta is seen. Miscellaneous: No ventral hernias. A right-sided peritoneal shunt catheter is seen, the tip is seen in the left lower abdomen. PELVIS: Genitourinary: Urinary bladder is markedly distended. No gross bladder wall abnormality. Pessary jennifer ce is noted in place, unchanged from prior study. Miscellaneous: No inguinal hernias or adenopathy. Bones: No suspicious bony lesions. No vertebral body compression fractures. Marked scoliosis of th oracolumbar spine is seen, unchanged from prior study. Degenerative disc disease throughout thoracic and lumbar spine is seen. Osteoarthritic changes are noted in bony pelvis. IMPRESSION: 1. Large hiatal hernia. Constipation. No bowel obstruction. No free fluid or free air. 2. Severe scoliosis of thoracic and lumbar spine. No gross acute osseous abnormality. 3. Markedly distended urinary bladder which may represent neurogenic bladder versus bladder outlet ob struction. Clinical correlation is recommended. No obstructing renal stone or hydronephrosis. 4. Right-sided peritoneal shunt catheter in place. Ostomy device in place, unchanged from prior study . No discrepancies from preliminary report. Reviewed by: Henrry Hensely MD on 10/16/2019 5:00 PM PDT Approved by: Henrry Hensley MD on 10/16/2019 5:00 PM PDT Station ID: [id number]
[2019-10-16] MEDS ORDERED: ATORVASTATIN 40 MG TABLET PO SCH (21:00)
== END 2019-10-16 17:10 | disposition home or self-care (01) ==
LOC: EDUNIT# → ED 17:55 → MS2 22:00
PROVIDERS: ADMIT Internal Medicine; ATTEND Internal Medicine
DX: G45.9 Transient cerebral ischemic attack, unspecified (principal); N39.0 Urinary tract infection, site not specified; I70.201 Unspecified atherosclerosis of native arteries of extremities, right leg; J43.9 Emphysema, unspecified; R33.9 Retention of urine, unspecified; K59.00 Constipation, unspecified; R91.1 Solitary pulmonary nodule; G93.89 Other specified disorders of brain; I10 Essential (primary) hypertension; H40.9 Unspecified glaucoma; Z74.09 Other reduced mobility; Z91.81 History of falling; Z86.79 Personal history of other diseases of the circulatory system; Z96.89 Presence of other specified functional implants; Z87.891 Personal history of nicotine dependence; Z79.899 Other long term (current) drug therapy
CPT/HCPCS: 36415; 70450; 70496; 70498; 71250; 74176; 80048; 80053; 80061; 81001; 83036; 83690; 83735; 84100; 84443; 84484; 85025; 85610; 87086; 93005; 93306; 93925; 94761; 96372; 96374; 97116; 97162; 97166; 99285; A9270; G0378; J1650; Q9967; 81003; 83721

== ENCOUNTER 2020-01-18 08:40 | Outpatient (CLI) | payer MEDICARE | END 2020-01-18 08:41 | disposition other institution (70) | LOC: EMS 08:40 | PROVIDERS: ATTEND Surgery | DX: R40.20 Unspecified coma (principal) | CPT/HCPCS: A0425; A0427 ==